=== PATIENT | female | born 1970 | race Caucasian/White ===

== ENCOUNTER 2019-04-12 15:33 | Emergency (ER) | payer OTHER, SELFPAY ==
[2019-04-12 15:57] VITALS: BP 118/65; PULSE 59; RESP 16; TEMP 36.8; O2SAT 100
--- NOTE | 2019-04-12 15:58 | ED.GENADUL_ITS ---
Discharge Plan Disposition Patient Disposition: HOME Condition: Good Discharge Details Chief Complaint: Orthopedic Clinical Impression: Skier's thumb Primary Care Provider: Inna,Local ED Provider: Soheila Ramirez Home Meds and New Rx's Prescriptions: Continued diphenhydramine HCl [Benadryl] 25 mg Capsule 12.5 mg PO RF: 0 Discharge Instructions Instructions: Skier's Thumb (ED) Additional Instructions: Encourage rest, ice, elevation. Tylenol and ibuprofen as needed for discomfort. Please follow-up with orthopedics for reevaluation. Please continue with thumb spica until evaluated by orthopedics. If you develop new or worsening symptoms please seek care urgently once again. Medical Decision Making Patient is a pleasant 48 year old RHD female presenting toa with c/c of left thumb injury. States that prior ot arrival she was skiing when she fell and jammed her thumb into the ground. Had immediate onset of pain in the MCP joint. Denies other injury at the time of the incident. No numbness/tingling. Was helmeted. No pain over the snuff box. Able to flex/extend IP joint. Notable swelling and ecchymosis. Will obtain imaging. FINDINGS: Bones/joints: Unremarkable. Soft tissues: Unremarkable. IMPRESSION: No evidence for acute bony injury. If clinical symptoms persist recommend followup film in 7-10 days. Discussed these findings with the patient. Reevaluated, patient has instability and pain of the ulnar collateral ligament. Discussed the pathology associated with skier's thumb with the patient. Encouraged SELWYN. She was fitted with a thumb spica. [place] is from [place], sent with disc of images home. Given return precautions. All of her questions and concerns were addressed, they are in agreemtn with this plan. HPI General Mode of arrival: ambulatory . Date/Time Provider Initiated Documentation: 04/12/19 15:37 . Limitations to Documentation: no limitations . Information obtained by: patient, family and RN notes reviewed . History of Present Illness 48 year old F presents to the emergency department with the chief complaint of left thumb pain, described as moderate, with intensity rated at 5. Quality is described as aching, and is localized to the left and upper extremity. Patient reports no radiation. Patient started experiencing this minute(s) and it has been constant. Immobilization improves symptom(s), Movement worsens symptoms . Patient notes no other symptoms.. Patient did receive the following treatments prior to arrival, none Related Data Home Medications Medication Instructions Recorded Confirmed diphenhydramine HCl [Benadryl] 12.5 mg PO 04/12/19 Allergies Allergy/AdvReac Type Severity Reaction Status Date / Time latex Allergy Unverified 04/12/19 16:05 Penicillins Allergy Unverified 04/12/19 16:05 Sulfa (Sulfonamide Allergy Unverified 04/12/19 16:05 Antibiotics) Review of Systems Constitutional Constitutional: Reports as per HPI, Denies chills, Denies fever(s), Denies headache(s) and Denies weakness ENT Ears, Nose, Mouth, and Throat: Denies headache(s) Cardiovascular Cardiovascular: Reports as per HPI Respiratory Respiratory: Reports as per HPI and Denies cough Musculoskeletal Musculoskeletal: Reports as per HPI and Denies tingling Integumentary/Breasts Skin/Breast: Reports as per HPI, Denies rash and Denies wounds Neurologic Neurologic: Reports as per HPI, Denies headache(s), Denies tingling, Denies paresthesias and Denies weakness [facility] Social History Smoking/Tobacco Use Status: Never Alcohol Intake: never Substance use type: does not use Exam Const General: cooperative, healthy appearing, comfortable, no acute distress, well developed and well groomed Nutritional Appearance: average body habitus and well nourished Orientation: alert and awake Resp Effort & Inspection: normal respiratory effort, able to speak in complete sentences and no respiratory distress Cardio Rate: regular rate Rhythm: regular rhythm Skin General skin exam: ecchymosis (MCP joint left thumb) Neuro General: alert and awake Cognition: normal cognition Speech: speech normal Gait: normal gait Motor: muscle tone normal throughout Sensory Exam: no sensory deficits noted Extrem Left upper extremity: full ROM, normal capillary refill, wrist Details: normal to inspection, normal ROM and normal vascular exam; no tenderness, no swelling and no deformity and hand Details: abnormal to inspection Details: joint swelling (MCP joint thumb); no muscle wasting, normal capillary refill, neuromotor exam normal, neurosensory exam normal, tendon exam abnormal (ulnar collateral ligament thumb), tenderness Location: of the thumb Location: at the MCP joint, vascular exam Details: radial pulse present and normal capillary refill, normal ROM of fingers, swelling Location: of the thumb Location: at the MCP joint and ecchymosis; no unusual warmth, no lacerations and no crepitus; abnormal to inspection Psych Appearance: grossly normal and well kempt Mental Status: mental status grossly normal Speech and Movement: speech and movement normal
--- NOTE | 2019-04-12 16:41 | DI.RAD_ITS ---
EXAM: XR THUMB LT INDICATION: jammed thumb skiing, pain at MCP. COMPARISON: No exams were available for comparison TECHNIQUE: 2D digital imaging was performed. FINDINGS: No fracture or dislocation is seen. IMPRESSION: Negative left thumb.
--- NOTE | 2019-04-12 17:07 | DI.VRAD_ITS ---
PROCEDURE INFORMATION: Exam: XR Left Finger(s) Exam date and time: 04/12/2019 4:02 PM Age: 48 years old Clinical indication: Other: Jammed thumb skiing, pain at mcp TECHNIQUE: Imaging protocol: XR Left fingers. Views: Minimum 2 views. COMPARISON: No relevant prior studies available. FINDINGS: Bones/joints: Unremarkable. Soft tissues: Unremarkable. IMPRESSION: No evidence for acute bony injury. If clinical symptoms persist recommend followup film in 7-10 days. Dictated and Authenticated by: Lexi Nicole MD. Ordering:ERENDIRA Parnell MD
== END 2019-04-12 18:10 | disposition home or self-care (01) ==
PROVIDERS: Emergency Provider Physician Assistant
DX: S63.602A Unspecified sprain of left thumb, initial encounter (principal); V00.321A Fall from snow-skis, initial encounter; Y93.23 Activity, snow (alpine) (downhill) skiing, snowboarding, sledding, tobogganing and snow tubing
CPT/HCPCS: 29125; 99284; 73140; 99283; L3807